=== PATIENT | female | born 2000 | race African-American/Black ===

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

== ENCOUNTER 2022-06-15 15:17 | Emergency (ER) | payer OTHER ==
[~2022-06-15] VITALS: Ht 170.2 cm; Wt 70.0 kg
[2022-06-15 16:39] LABS: BASOPHILS % 0.5 % (0.0-2.0); CHLORIDE 107 mEq/L (98-107); EOSINOPHILS % 3.7 % (0.0-5.0); HEMATOCRIT. 35.5 % (36.0-48.0); HEMOGLOBIN. 11.8 g/dL (12.0-16.0); LYMPHOCYTES % 52.8 % (20.0-50.0); MEAN CORPUSCULAR VOLUME 72.4 fL (81.0-99.0); MEAN PLATELET VOLUME 8.6 fl (7.4-10.4); MONOCYTES % 11.4 % (2.0-8.0); NEUTROPHILS % 31.6 % (40.0-76.0); PLATELET 306 x1000/uL (130-400); RED BLOOD CELL COUNT 4.91 mill/uL (4.2-5.4); RED CELL DISTRIBUTION WIDTH 16.6 % (11.6-14.6)
[2022-06-15 16:43] LABS: HCG SCREEN NEGATIVE
[2022-06-15] MEDS ORDERED: ACETAMINOPHEN 500MG TABLET PO NR (17:15)
[2022-06-15] MEDS ORDERED: IBUPROFEN 600MG TABLET PO ONE (18:45)
[2022-06-15 18:46] VITALS: BP 134/95
== END 2022-06-16 01:31 | disposition left against medical advice (07) ==
LOC: ER 15:17
DX: R07.89 Other chest pain (principal); Z88.0 Allergy status to penicillin
CPT/HCPCS: 36415; 71045; 80053; 81025; 83880; 84484; 84703; 85025; 85379; 87426; 93005; 99285; C9803